=== PATIENT | male | born 1955 | race African-American/Black ===

== ENCOUNTER 2024-12-04 06:14 | Day surgery (SDC) | payer OTHER ==
[2024-11-30 13:24] VITALS: BMI 26.6
[2024-12-04 08:19] VITALS: RESP 18
[2024-12-04] MEDS ORDERED: MIDAZOLAM HCL 2 MG/2 ML SINGLE DOSE VIAL ONE (09:45)
[2024-12-04 12:30] VITALS: TEMP 97.9
[2024-12-04 13:12] VITALS: BP 129/77; PULSE 51
== END 2024-12-04 13:00 | disposition home or self-care (01) ==
LOC: JASU-SURG 06:14
PROVIDERS: ATTEND Urology
PROC: 0TF4XZZ Fragmentation in Left Kidney Pelvis, External Approach (ICD-10-PCS; principal; 2024-12-04 10:00)
DX: N20.0 Calculus of kidney (principal)